=== PATIENT | female | born 1985 | race Caucasian/White ===

== ENCOUNTER 2020-07-12 05:34 | Emergency (ER) | payer OTHER, SELFPAY ==
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
[2020-07-12 05:43] VITALS: BP 121/73; PULSE 88; RESP 18; TEMP 36.3; O2SAT 97
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
[2020-07-12] MEDS: CYCLOBENZAPRINE HCL 10 MG TABLET PO (06:07)
[2020-07-12] MEDS: KETOROLAC 30 MG/ML VIAL (*BKC) IM (06:08)
[2020-07-12 06:53] VITALS: BP 122/70; PULSE 88; RESP 20; O2SAT 99
== END 2020-07-12 06:59 | disposition home or self-care (01) ==
PROVIDERS: Emergency Provider Family Medicine
DX: T14.8XXA Other injury of unspecified body region, initial encounter (principal); V89.2XXA Person injured in unspecified motor-vehicle accident, traffic, initial encounter
CPT/HCPCS: 73560; 73620; 96372; 99283; 99284; A9270; J1885

== ENCOUNTER 2022-01-04 11:59 | Emergency (ER) | payer OTHER, SELFPAY ==
--- NOTE | ~2022-01-04 | XR_ITS ---
EXAMINATION: XR thoracic spine 2V DATE: 01/04/2022 13:05 INDICATION: Neck pain post chiropractic manipulation TECHNIQUE: One AP, lateral and lateral swimmer's views of the thoracic spine were obtained. COMPARISON: None. FINDINGS: 10 degrees thoracic levocurvature scoliosis. Sagittal alignment is normal. Vertebral body heights are normal. Minimal to mild disc height loss and very small degenerative endplate osteophytes at multipl e levels in the mid to lower thoracic spine. Hypoplastic bilateral ribs at T12. No rib fractures iden tified. Lungs are clear with no focal airspace opacities, pulmonary edema, pleural effusion or pneumo thorax. Cardiomediastinal silhouette is normal. IMPRESSION: 1. Mild thoracic levoscoliosis with minimal to mild spondylosis. Reviewed, dictated and finalized at location A.
--- NOTE | ~2022-01-04 | XR_ITS ---
EXAMINATION: XR wrist LT 2V DATE: 01/04/2022 13:04 INDICATION: Left wrist injury with palpable pop while moving concrete TECHNIQUE: Posteroanterior and lateral views of the left wrist were obtained. COMPARISON: none FINDINGS: Bone alignment is normal. No fracture. Joint spaces are normal. Soft tissues are unremarkable. IMPRESSION: 1.. Negative left wrist radiographs. Reviewed, dictated and finalized at location A.
[2022-01-04 12:15] VITALS: BP 129/85; PULSE 90; RESP 16; TEMP 36.6; O2SAT 97
--- NOTE | 2022-01-04 12:32 | ED.GENADULT ---
HPI - General Adult General Chief complaint: Extremity Injury, Upper Stated complaint: Back and L wrist pain Time Seen by Provider: 01/04/22 12:29 History of Present Illness HPI narrative: 36-year-old female patient is in the ER with complaints of pain between her shoulder blades after she had a chiropractor adjustment done to her thoracic spine yesterday. The pain is more on the right scapular area and increases with movement and deep breathing. She denies any neck pain. She denies any associated numbness or tingling of her arms legs or torso. Patient also complains of hearing a pop in her left wrist while she was working on concrete yesterday and has had pain in the left forearm on movement. Patient has had carpal tunnel release done on the left arm before. She denies any pain or numbness along the thumbs of fingers. She has not noticed any other swelling. Offers no other complaints. Related Data Home Medications Medication Instructions Recorded Confirmed escitalopram oxalate [Lexapro] 150 mg PO DAILY 01/04/22 01/04/22 Allergies Allergy/AdvReac Type Severity Reaction Status Date / Time amoxicillin [From Amoxil] Allergy Hives Verified 01/04/22 12:24 Review of Systems Review of Systems: All systems reviewed & are unremarkable except as noted in HPI and below PMFSH Past Medical History Medical History (Updated 01/04/22 @ 13:24 by Cierra Tan MD) Anxiety and depression Surgical History Surgical History (Updated 01/04/22 @ 12:51 by Cierra Tan MD) History of carpal tunnel release Exam Narrative: Alert female patient in moderate pain distress. Vital signs are stable. HEENT atraumatic head and face area. Eyes ears nose throat are normal. Neck is supple. There is no tenderness on the midline. There is no tenderness along the paracervical musculature. The thoracic spine curvature is normal. There is no midline tenderness. Patient does have some tenderness along the left parascapular border that radiates up and down along the trapezius. Lungs are clear bilaterally. Heart tones are regular. There is no chest wall tenderness. Extremities: no obvious deformity or swelling is noted to any of the extremities. Patient does have some tenderness dorsally with left wrist area that extends cephalad. Neurovascular status to the hand is intact. Skin is warm and dry color is normal. Neurologic exam is grossly normal. Mood and affect are normal. Course Course Emergency Course: X-rays of the thoracic spine appear normal. There is no obvious fracture noted. Left wrist x-ray shows no fracture or dislocation. The patient is aware of the preliminary readings on the x-rays and is aware that if there should be any discrepancy she will be notified. In the meantime she has had some relief of pain with Toradol and I will discharge her home with oral ketorolac as well as methocarbamol for muscle relaxaant Discharge Plan Discharge Clinical Impression: Sprain and strain of wrist, Musculoskeletal disorder involving upper trapezius muscle Patient Disposition: Home, Self-Care Condition: Stable Instructions: Muscle Strain (ED), Musculoskeletal Pain (ED), Wrist Sprain (ED) Additional Instructions: Medications as prescribed . Take muscle relaxant at night only if you want to return to work during the day Apply ice to the upper back for 10 15 minutes as needed for pain relief Wear a wrist splint on the left wrist for comfort See your PCP as needed Prescriptions: New ketorolac 10 mg tablet 10 mg PO TID PRN (Reason: pain) 5 Days Qty: 14 RF: 0 methocarbamol 750 mg tablet 750 mg PO TID Qty: 15 RF: 0 No Action escitalopram oxalate [Lexapro] 20 mg Tablet 150 mg PO DAILY RF: 0 Follow-up/Referrals: UNKNOWN,DOCTOR [Primary Care Provider] -
[2022-01-04] MEDS: KETOROLAC (*BKC) 60 MG/2 ML VIAL IM (12:39)
[2022-01-04 13:37] VITALS: BP 120/86; PULSE 82; RESP 16; O2SAT 98
== END 2022-01-04 12:37 | disposition home or self-care (01) ==
PROVIDERS: Emergency Provider Emergency Medicine
DX: M54.6 Pain in thoracic spine (principal); S63.502A Unspecified sprain of left wrist, initial encounter; F41.9 Anxiety disorder, unspecified; F32.A Depression, unspecified
CPT/HCPCS: 72070; 73100; 96372; 99284; J1885

== ENCOUNTER 2022-04-02 05:15 | Emergency (ER) | payer OTHER, SELFPAY ==
--- NOTE | ~2022-04-02 | XR_ITS ---
EXAMINATION: XR chest 1V portable DATE: 04/02/2022 06:25 INDICATION: Dizziness. Loss of consciousness. TECHNIQUE: frontal view of the chest was obtained. COMPARISON: None FINDINGS: The lungs are clear with no focal airspace opacities, pulmonary edema, pleural effusion or pneumothor ax. The cardiomediastinal silhouette is normal. Visualized bones and soft tissues are unremarkable. IMPRESSION: 1. Normal chest radiograph. Reviewed, dictated and finalized at location A. IMPRESSION: 1. Normal chest radiograph.
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
[2022-04-02 05:23] VITALS: BP 130/85; PULSE 95; RESP 20; TEMP 37; O2SAT 99
--- NOTE | 2022-04-02 05:38 | ECG_ITS ---
Measurements Intervals [place] Rate: 87 P: 66 NC: 120 QRS: 76 QRSD: 81 T: -6 QT: 343 QTc: 414 Interpretive Statements SINUS RHYTHM LEFT VENTRICULAR HYPERTROPHY NONSPECIFIC ST & T-WAVE ABNORMALITY ABNORMAL ECG NO PREVIOUS ECG AVAILABLE FOR COMPARISON Electronically Signed On 04-02-2022 9:41:27 CDT by Richy Martinez M.D.
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
[2022-04-02 05:54] LABS: Basophils Absolute Auto 0.14 K/mm3 (0.00-0.10); Basophils Percent Auto 0.9 % (0.0-1.0); Eosinophils Absolute Auto 0.24 K/mm3 (0.02-0.50); Eosinophils Percent Auto 1.6 % (1.0-6.0); Hematocrit 40.2 % (35.0-49.0); Hemoglobin 13.7 g/dL (12.0-15.0); Immature Granulocyte Absolute 0.07 K/mm3 (0.00-0.00); Immature Granulocyte Percent A 0.5 % (0.0-0.0); Lymphocytes Absolute Auto 3.97 K/mm3 (1.10-4.50); Lymphocytes Percent Auto 26.4 % (18.0-42.0); Mean Corpuscular HGB Conc 34.1 g/dL (32.0-36.0); Mean Corpuscular Hemoglobin 33.7 pg (27.0-31.0); Mean Corpuscular Volume 98.8 fL (78.0-102.0); Mean Platelet Volume 9.7 fl (9.2-11.8); Monocytes Absolute Auto 0.84 K/mm3 (0.10-0.90); Monocytes Percent Auto 5.6 % (2.0-11.0); Neutrophils Absolute Auto 9.8 K/mm3 (1.7-7.2); Platelet Count Result 304 K/mm3 (150-420); Red Blood Count 4.07 M/mm3 (4.20-5.40); Red Cell Distribution Width 13.2 % (11.6-14.4)
[2022-04-02 06:04] LABS: SPREG INTERNAL CONTROL Positive; Serum Qual hCG Negative
[2022-04-02] MEDS: IBUPROFEN 400 MG TABLET 800 MG PO (06:04)
[2022-04-02] MEDS: SODIUM CHLORIDE 0.9% IV 1,000 ML 999 ML IV CONT (06:05)
[2022-04-02 06:14] LABS: Lactic Acid Reflex 1.3 mmol/L (0.4-2.0)
[2022-04-02 06:21] LABS: Alanine Aminotransferase 30 U/L (14-59); Alkaline Phosphatase 70 U/L (46-116); Anion Gap 13 mmol/L (8-16); Aspartate Amino Transferase 17 U/L (15-37); Bilirubin,Total 0.1 mg/dL (0.00-1.00); Blood Urea Nitrogen 14 mg/dL (7-18); Calcium 8.9 mg/dL (8.5-10.1); Carbon Dioxide 22 mmol/L (21-32); Chloride 103 mmol/L (98-108); Estimated CRCL calculation 90 ml/min; Estimated Glomerular Filt Rate > 60; Ethanol 90 mg/dL (0-6); Glucose 96 mg/dL (70-99); Osmolality Calculated 286 mOsm/kg (285-295); Potassium 3.8 mmol/L (3.5-5.1); Sodium 138 mmol/L (136-145); Total Protein 7.7 g/dL (6.4-8.2); Troponin I 19.4 ng/L (0.00-60.4)
[2022-04-02 07:17] LABS: Add Urine Microscopic? YES; Appearance Urine Clear (Clear); Bilirubin Urine Negative (Negative); Blood Urine Negative (Negative); Color Urine Light Yellow (Yellow); Glucose Urine UA Negative (Negative); Ketones Urine Trace (Negative); Leukocyte Esterase Ur Negative (Negative); Nitrate Urine Negative (Negative); Protein Urine Negative (Negative); Urobilinogen Urine 0.2 mg/dL (0.2-1.0); pH Urine 6.5 (5.0-8.0)
[2022-04-02 07:21] LABS: Bacteria Urine Trace /hpf; RBC Urine None seen /hpf (0-2); Squamous Epithelial Cell Urine Few /hpf (Few); WBC Urine 0-3 /hpf (0-3)
[2022-04-02 07:29] LABS: Amphetamine Screen Urine Negative (Negative); Barbiturate Screen Urine Negative (Negative); Benzodiazepines Screen Urine Negative (Negative); Cannabinoid Screen Urine Negative (Negative); Cocaine Screen Urine Negative (Negative); Methadone Screen Urine Negative (Negative); Opiate Screen Urine Negative (Negative); Phencyclidine Screen Urine Negative (Negative)
[2022-04-02 07:38] VITALS: BP 104/61; PULSE 84; RESP 14; TEMP 36.2; O2SAT 98
== END 2022-04-02 07:42 | disposition home or self-care (01) ==
PROVIDERS: Emergency Provider Emergency Medicine
DX: S09.93XA Unspecified injury of face, initial encounter (principal); Y04.0XXA Assault by unarmed brawl or fight, initial encounter
CPT/HCPCS: 36415; 70450; 70460; 70486; 71045; 80053; 80307; 81001; 83605; 84484; 84703; 85025; 93005; 96360; 99284; A9270; J7030; Q9967

== ENCOUNTER 2023-09-12 12:44 | Emergency (ER) | payer OTHER, SELFPAY ==
[2023-09-12 12:44] VITALS: BP 139/86; PULSE 95; RESP 18; TEMP 36.9; O2SAT 96
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
[2023-09-12] MEDS: LIDOCAINE HCL 1% LOCAL INJ 10 ML VIAL INFILTRATE (13:10)
[2023-09-12] MEDS: TETANUS,DIPHTHERIA,AC PERTUSSIS ADULT 0.5 ML (ADACEL) IM (13:10)
[2023-09-12] MEDS: NEOMYCIN/POLYMYXIN/BACITRACIN OINTMENT PACKET 1 PACKET TOPICAL (13:58)
[2023-09-12 14:06] VITALS: BP 127/92; PULSE 91; RESP 18; TEMP 36.7; O2SAT 99
== END 2023-09-12 14:08 | disposition home or self-care (01) ==
PROVIDERS: Emergency Provider Emergency Medicine
DX: S61.211A Laceration without foreign body of left index finger without damage to nail, initial encounter (principal); W26.0XXA Contact with knife, initial encounter; Z23 Encounter for immunization; F41.8 Other specified anxiety disorders
CPT/HCPCS: 12001; 90471; 90715; 99282